=== PATIENT | female | born 2000 | race Caucasian/White ===

== ENCOUNTER 2021-10-22 17:21 | Emergency (ER) | payer SELFPAY ==
[~2021-10-22] VITALS: Ht 160 cm; Wt 54.4 kg
[2021-10-22] MEDS ORDERED: ACETAMINOPHEN 325 MG TAB ONE (18:02)
[2021-10-22] MEDS ORDERED: SODIUM CHLORIDE 0.9% 1000ML 1,000 ML ONE ×2 (18:02→20:20)
[2021-10-22] MEDS ORDERED: KETOROLAC TROMETHAMINE 30 MG/ML VIAL ONE (18:02)
[2021-10-22] MEDS ORDERED: KETOROLAC TROMETHAMINE 30 MG/ML VIAL IV STA (18:04)
[2021-10-22] MEDS: SODIUM CHLORIDE 0.9% 1000ML 1,000 ML IV SCH ×2 (18:05→20:15)
[2021-10-22] MEDS ORDERED: ACETAMINOPHEN 325 MG TAB PO ONE (18:15)
[2021-10-22] MEDS ORDERED: CEFTRIAXONE 1 GM VIAL IM ONE (18:15)
[2021-10-22] MEDS ORDERED: CEFTRIAXONE 1 GM VIAL ONE (18:20)
[2021-10-22] MEDS ORDERED: SODIUM CHLORIDE 0.9% 50ML 50 ML ONE (19:10)
[2021-10-22] MEDS ORDERED: IOPAMIDOL 370 MG/ML 200 ML INFUS..BTL INJ ONE ×2 (19:12→19:19)
[2021-10-22] MEDS ORDERED: SODIUM CHLORIDE 0.9% 1000ML 1,000 ML IV ONE (20:30)
== END 2021-10-22 21:50 | disposition home or self-care (01) ==
LOC: FSED 17:41
DX: N75.1 Abscess of Bartholin's gland (principal); F43.10 Post-traumatic stress disorder, unspecified; F41.9 Anxiety disorder, unspecified
CPT/HCPCS: 72193; 80053; 81003; 81025; 85025; 99284; J0696; J1885; J7030; Q9967